=== PATIENT | female | born 1940 | race Caucasian/White ===

== ENCOUNTER → 2017-06-30 | Outpatient (CLI) | payer OTHER, MEDICAID ==
--- NOTE | 2017-06-30 15:21 | VAS ---
HISTORY: Bilateral lower extremity edema Study: Bilateral lower extremity venous Doppler ultrasound Comparison: None TECHNIQUE: Multiple salazar scale and color flow Doppler images of the deep venous system were obtained of the bilateral lower extremities. FINDINGS: The deep venous systems of the bilateral lower extremities were evaluated from the level of the commo n femoral vein through the popliteal vein. Normal color flow and augmentation can be observed. In a ddition, normal compression is seen throughout the deep venous system. Within the right popliteal fos sa there is a 1.4 cm x 3.0 cm x 2.5 cm fluid filled structure which demonstrates no peripheral or int ernal vascularity, most consistent with a popliteal cyst. IMPRESSION: 1. Negative for DVT. 2. Right popliteal cyst Reported By:
== END ==
LOC: RAD 14:07
PROVIDERS: ATTEND Internal Medicine
DX: I25.10 Atherosclerotic heart disease of native coronary artery without angina pectoris (principal); R60.1 Generalized edema
CPT/HCPCS: 93970